=== PATIENT | female | born 1980 | race Caucasian/White ===

== ENCOUNTER → 2020-07-26 | Day surgery (SDC) | payer BC ==
[2020-07-21 10:09] LABS: Absolute Lymphocytes (CBC) 1.2 K/uL (0.7-4.9); Basophils % 0.8 % (0-1.3); Lymphocytes % 19.6 % (15.3-44.8); MPV 9.6 fL (7.6-11.3); RBC Red Blood Cell Count 3.95 M/uL (3.86-4.86)
[2020-07-21 10:25] LABS: ALT/SGPT 17 U/L (12-78); AST/SGOT 10 U/L (15-37); Albumin 3.7 g/dL (3.4-5.0); Alkaline Phosphatase 98 U/L (45-117); Amylase 73 U/L (25-115); BUN Blood Urea Nitrogen 15 mg/dL (7-18); Bicarbonate 28 mmol/L (21-32); Bilirubin Direct < 0.1 mg/dL (0-0.2); Bilirubin Total 0.3 mg/dL (0.2-1.0); Glucose Level 110 mg/dL (74-106); Potassium 3.5 mmol/L (3.5-5.1); Protein, Total 7.6 g/dL (6.4-8.2); Sodium Level 141 mmol/L (136-145)
[~2020-07-26] MED LIST: CEFOXITIN/SWI 1gm 1 GM/10 ML SYR ONE; CODEINE 30MG/APAP 300MG TAB ONE; CODEINE 30MG/APAP 300MG TAB PO ONE; FENTANYL CITR 100 MCG/2 ML ONE; GLYCOPYRROLATE 0.2 MG/ML SYR ONE; HYDROMORPHONE HCL 1 MG/ML INJ ONE; KETOROLAC 30 MG/ML INJ ONE; LIDOCAINE 1% MPF 5 ML VIAL ONE; MIDAZOLAM HCL 2 MG/2 ML INJ ONE; NEOSTIGMINE 1 MG/ML -5 ML ONE; ONDANSETRON 4 MG/2 ML VIAL ONE; PROMETHAZINE INJ 25 MG/ML AMP ONE; ROCURONIUM 50 MG/5 ML VIAL IV ONE; Ringers Lactate 1,000 ML IV ONE; dexAMETHasone 10 MG/ML VIAL ONE; propofoL 200 MG/20 ML VIAL IV ONE
--- NOTE | 2020-07-26 08:19 | P.BOP ---
Preoperative diagnosis: symptomatic cholelithiasis, RUQ abd pain Postoperative diagnosis: same Primary procedure: Laparoscopic cholecystectomy Supervisor [facility]: JUSTIN BARAJAS ([employer]) Estimated blood loss: <10cc Specimen: gb Findings: as above Anesthesia: General Complications: None Transferred to: Recovery Room Condition: Good
--- NOTE | 2020-07-26 09:05 | OP ---
Date of Procedure: 07/26/2020 Surgeon: Silverio Rodríguez MD Preoperative Diagnoses: Acute cholecystitis, symptomatic cholelithiasis, right upper quadrant abdomi nal pain. Postoperative Diagnoses: Acute cholecystitis, symptomatic cholelithiasis, right upper quadrant abdom inal pain. Procedure: Laparoscopic cholecystectomy. Estimated Blood Loss: Less than 10 mL. Anesthesia: General plus local. Indication: This is the case of a 40-year-old patient with above diagnoses. Fully explained the cole efits, alternatives, and risks of laparoscopic possible open cholecystectomy, which include, but not limited to infection, bleeding, damage to adjacent structures, anesthesia complication, choledocholit hiasis, bile leak, pancreatitis, HI, and even . She also understands this may not relieve any s ymptoms. She may need more than one surgical intervention. She understood, signed a consent. Procedure In Detail: The patient was brought to the operating room and placed in supine position. A nesthesia was done without complication. Abdominal area was prepped and draped in a sterile fashion. Marcaine 0.5% was injected for local anesthetic followed by sharp incision of the skin in the infra umbilical region. The incision was carried down to fascia, which was opened under direct vision. Pe ritoneum was encountered, opened under direct vision. Vicryl #1 placed inside the fascia. Boo tr ocar was carefully introduced. Pneumoperitoneum was obtained. I placed 3 more trocars, 5 mm each on e of them, 1 in the epigastric area and 2 in the right upper quadrant using the same technique, which consisted of local anesthetic, sharp incision of the skin and introduction of the trocars under dire ct vision. This allowed me to put a grasper in the fundus of the gallbladder and another grasper in the infundibulum retracting the gallbladder in the inferolateral fashion exposing the triangle of Naeem ot and obtaining critical view. The cystic duct and cystic artery were clearly isolated, freed circu mferentially and a connection between those and the gallbladder were clearly identified. I proceeded to ligate those by using at least 3 clips proximal, 1 clip distal, ligation in the middle. Same was done with the cystic artery. No bile leak, no bleeding. The gallbladder was removed from liver usi ng Bovie cauterizer and removed from abdominal cavity using EndoCatch through umbilical incision. Th e area was inspected once again. No bile leak, no bleeding. Clips were intact. At that moment, I p roceeded to remove the trocars under direct vision. Deflated pneumoperitoneum, closed the fascia wit h #1 Vicryl. Irrigated the subcutaneous tissue, closed with 3-0 chromic and skin in a subcuticular f ashion with 3-0 chromic and Steri-Strips on top. Sponge count and instrument counts correct. The pa tient tolerated the procedure well. The patient was sent to recovery in stable condition. JASON/MEDINA Voice ID: [id number] Report ID: [id number]
--- NOTE | 2020-07-26 09:11 | DS ---
Diagnoses: Acute cholecystitis, symptomatic cholelithiasis, right upper quadrant abdominal pain. Procedure: Laparoscopic cholecystectomy. Disposition: Home. Discharge Instructions: Activity as tolerated. No heavy lifting. Plan: Follow up in my office in 1 week. Call for appointment at [phone]. Keep area dry for 48 rico rs, then may shower. Keep Steri-Strips intact. Medications: Include Tylenol No.3 q.4 hours p.r.n., Bactrim DS p.o. b.i.d. JASON/MEDINA Voice ID: [id number] Report ID: [id number]
[2020-07-26 10:28] VITALS: BP 105/60; TEMP 97.5; O2SAT 99
== END | disposition home or self-care (01) ==
LOC: OR 06:47
PROVIDERS: ATTEND Surgery
PROC: 0FT44ZZ Resection of Gallbladder, Percutaneous Endoscopic Approach (ICD-10-PCS; principal; 2020-07-26 08:30)
DX: K80.10 Calculus of gallbladder with chronic cholecystitis without obstruction (principal); Z20.822 Contact with and (suspected) exposure to COVID-19
CPT/HCPCS: 85025; 80048; 36415; 82150; 81025; 80076; 88304; 47562; U0002; J2704; J2550; J2250; J3010 ×2; J1100; J1170; J2710; J7120; J2405